=== PATIENT | male | born 1995 | race Caucasian/White ===

== ENCOUNTER 2016-06-16 05:20 | Emergency (ER) ==
[2016-06-16] MEDS ORDERED: MOTRIN LIQUID PO ONE (05:38)
[2016-06-16] MEDS ORDERED: DECADRON IV ONE (05:39)
[2016-06-16] MEDS ORDERED: HYDROCODONE/APAP 7.5-325/15 ML PO ONE (05:39)
--- NOTE | 2016-06-16 05:45 | PROVIDER DOCUMENTATION ---
[facility] General - General Source: patient <James Little - Last Filed: 06/16/16 05:41> <Alo Hernandezophe Davey - Last Filed: 06/16/16 06:56> - General Chief Complaint: Sore Throat Stated Complaint: SORE THROAT Time Seen by Provider: 06/16/16 05:30 Allergies/Adverse Reactions: Patient Allergies Allergy/AdvReac Type Severity Reaction Status Date / Time No Known Allergies Allergy Verified 01/25/16 20:34 Home Medications: Home Medication List Medication Instructions Recorded Confirmed Last Taken Type No Home Medications 06/16/16 06/16/16 Unknown History - History of Present Illness-EENT General Nature of Presenting Problem: pt has had 2 day hx of increasing sore thraot. Minimal runny nose or cough. Pain is now severe. HE has tried sore throat lozenges aqnd tylenol. The pain radiates to his ears. No prior hx of problems with sore throats (James Little) Review of Systems - Adult - REVIEW OF SYSTEMS - ADULT Constitutional: denies: chills, fever Eyes: denies: discharge Ears, Nose, Mouth & Throat: reports: throat pain. denies: ear pain, sinus problem Cardiovascular: denies: chest pain Respiratory: reports: cough. denies: shortness of breath, wheezing Gastrointestinal: denies: abdominal pain, diarrhea, nausea, vomiting Genitourinary: denies: dysuria, frequency, flank pain Musculoskeletal: denies: muscle aches Integumentary: denies: rash Neurological: denies: headache/migraines, numbness, paresthesia Psychiatric: reports: no symptoms reported Endocrine: reports: no symptoms reported Hematologic/Lymphatic: reports: no symptoms reported Allergic/Immunologic: reports: no symptoms reported All Other Systems: Reviewed and Negative <James Little - Last Filed: 06/16/16 05:41> Past History - Adult - PAST MEDICAL HISTORY-ADULT Review of Records: reports: Old Records Reviewed, Nursing Assessment Review, Medications Reviewed, Social history reviewed & non-contributory. Major Childhood Illnesses: reports: denies history Cardiovascular: reports: denies history Respiratory: reports: denies history Gastrointestinal: reports: denies history Obstetrical/Gynecological: reports: denies history Genitourinary: reports: denies history Musculoskeletal: reports: denies history Neurological: reports: denies history Endocrine/Immune: reports: denies history Other Conditions: reports: denies history - PRIOR SURGERIES/PROCEDURES Surgical/Procedure History: reports: none - PRIOR HOSPITALIZATIONS Prior Hospitalizations: reports: none - IMMUNIZATION STATUS Childhood Immunizations: See Nurse Assessment Flu Vaccine: See Nurse Assessment - FAMILY HISTORY Family History: reviewed, not pertinent - SOCIAL HISTORY Smoking: denies Substance Use: none/never Alcohol Use Frequency: never Living Situation: family <James Little - Last Filed: 06/16/16 05:41> Physical Exam- EENT - Physical Exam EENT Initial Vital Signs Reviewed: Yes General Appearance: appears well, alert, no apparent distress Ear Exam: bilateral ear: TM normal Throat Exam: negative: pharynx normal (minimal erythema of the tonisil, no exudates) Neck: non-tender, full range of motion, supple, normal inspection. negative: lymphadenopathy, meningismus Respiratory: chest non-tender, lungs clear, normal breath sounds, no pleuratic chest pain, no respiratory distress, no accessory muscle use Cardiovascular: regular rate, rhythm, no murmur Abdominal Exam: normal bowel sounds, non tender, soft, no organomegaly, no pulsatile mass Back Exam: normal inspection, no CVA tenderness, no vertebral tenderness Integumentary: normal color, normal turgor, warm/dry Neurologic: grossly normal, no motor/sensory deficits Psych/Mental Status: normal mood/affect, normal thought content, normal thought process, oriented x 3 <James Little - Last Filed: 06/16/16 05:41> Departure <James Little - Last Filed: 06/16/16 05:41> - Departure Time of Disposition Order: 06:56 Certified Medical Emergency: Emergent <Joe Hernandez I - Last Filed: 06/16/16 06:56> - Departure DIAGNOSIS: Pharyngitis Disposition: HOME 01 Condition: Stable Physician Attestation - Physician Attestation I, the provider, attest to the following statement:: Joe Hernandez Physician documentation Attestation:: This documentation recorded by the scribe accurately reflects the service I personally performed and the decisions made by me. <Joe Hernandez I - Last Filed: 06/16/16 06:56>
[2016-06-16 07:16] VITALS: BP 139/84
== END 2016-06-16 07:16 | disposition home or self-care (01) ==
LOC: ED 05:20
DX: J02.9 Acute pharyngitis, unspecified (principal); R09.89 Other specified symptoms and signs involving the circulatory and respiratory systems; R05 Cough; H92.03 Otalgia, bilateral
CPT/HCPCS: 87081; 87430; 87804